=== PATIENT | female | born 2000 | race Caucasian/White ===

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

== ENCOUNTER 2018-04-04 20:17 | Emergency (ER) | payer MEDICAID ==
[~2018-04-04] VITALS: Ht 160 cm; Wt 79.5 kg
[2018-04-04 20:21] VITALS: Ht 160 cm; Wt 79.5 kg
[2018-04-04] MEDS ORDERED: OMNICEF300 MG PO (21:03)
[2018-04-04] MEDS ORDERED: PROMETHAZINE W473 ML PO (21:03)
[2018-04-04 22:31] VITALS: BP 123/62
== END 2018-04-04 22:31 | disposition home or self-care (01) ==
LOC: D.ER 20:17
DX: J40 Bronchitis, not specified as acute or chronic (principal); R09.89 Other specified symptoms and signs involving the circulatory and respiratory systems; R05 Cough; F17.200 Nicotine dependence, unspecified, uncomplicated

== ENCOUNTER 2019-06-12 18:31 | Observation (INO) | payer OTHER ==
[~2019-06-12] VITALS: Ht 160 cm; Wt 92.5 kg
[~2019-06-12 18:31] MED LIST changes: +OMNICEF300 MG PO; +PROMETHAZINE W473 ML PO
[2019-06-12 19:33] LABS: BASOPHILS 0.3 % (0-2); CALC OSMOLALITY 274 mosm/kg (275-300); CALCIUM 9.2 mg/dL (8.5-10.1); CARBON DIOXIDE 24.3 mmol/L (21.0-32.0); CHLORIDE - SERUM 105 mmol/L (98-107); CREATININE - SERUM 0.9 mg/dL (0.6-1.3); EOSINOPHILS 0.3 % (0-7); GLUCOSE 112 mg/dL (74-106); HCG SERUM POSITIVE (NEGATIVE); HEMATOCRIT 40.9 % (36.0-48.0); HEMOGLOBIN 13.8 g/dL (12-16); IMMATURE GRANULOCYTES 0.2 % (0-5); LYMPHOCYTES 31.8 % (15-50); MCH 29.9 pg (26.0-34.0); MCHC 33.7 g/dL (31.0-37.0); MCV 88.7 fL (80.0-100.0); MEAN PLATELET VOLUME 11.2 fL (7.4-10.4); MONOCYTES 9.1 % (2-11); NEUTROPHILS 58.3 % (40-80); PLATELET COUNT 202 10x3/uL (130-400); POTASSIUM - SERUM 3.6 mmol/L (3.5-5.1); RBC 4.61 10x6/uL (4.00-5.40); RDW 12.5 % (11.5-14.5); SODIUM 138 mmol/L (136-145); UREA NITROGEN 8 mg/dL (7-18); WBC 9.7 10x3/uL (4.8-10.8); eGFR NON AFRICAN AMERICAN 85 mL/min (90-120)
--- NOTE | 2019-06-12 19:50 | NUR ---
URINE SAMPLE OBTAINED BY PATIENT AND SENT TO LAB. PT AMBULATED TO RESTROOM INDEPENDENTLY WITHOUT DIFFICULTY.
--- NOTE | 2019-06-12 19:52 | NUR ---
PROVIDED PT WITH 2 CUPS OF WATER TO FILL BLADDER PER [facility].
--- NOTE | 2019-06-12 19:55 | NUR ---
PROVIDED PT WITH ADDITIONAL BLANKET
--- NOTE | 2019-06-12 20:05 | NUR ---
PT REPORTS BLADDER IS FULL AT THIS TIME. CONTACTED JOSSELIN FROM [facility] TO COME GET PATIENT FOR [facility].
--- NOTE | 2019-06-12 20:09 | NUR ---
PT WHEELED TO [facility] IN W/C BY [facility] TECH
--- NOTE | 2019-06-12 20:10 | NUR ---
ADVISED PT OF NPO STATUS
[2019-06-12 20:11] LABS: ALBUMIN 4.1 g/dL (3.4-5.0); ALKALINE PHOSPHATASE 71 U/L (30-120); ALT (SGPT) 38 U/L (10-68); BILIRUBIN - TOTAL 0.36 mg/dL (0.2-1.3); HCG - QUANTITATIVE (MATERNAL) 1393 mIU/mL; PROTEIN - SERUM 7.9 g/dL (6.4-8.2)
[2019-06-12 20:16] LABS: BILIRUBIN NEGATIVE (NEGATIVE); GLUCOSE NEGATIVE (NEGATIVE); KETONE NEGATIVE (NEGATIVE); NITRITE NEGATIVE (NEGATIVE); SPECIFIC GRAVITY 1.025 (1.005-1.020); UROBILINOGEN NORMAL (NORMAL)
[2019-06-12 20:17] LABS: BACTERIA FEW /hpf (NEGATIVE); EPITHELIAL CELLS OCC /hpf (0-5); RED CELLS - URINE 0-5 /hpf (0-5); WHITE CELLS - URINE 0-5 /hpf (NEGATIVE)
--- NOTE | 2019-06-12 20:35 | NUR ---
PT IN [facility] VERY UPSET AT THIS TIME. MOTHER BROUGHT WITH RN TO PATIENT. ADVISED EDP PT IS UPSET AT THIS TIME AND NEW ORDERS GIVEN.
--- NOTE | 2019-06-12 20:50 | NUR ---
COLLECTED PAD FROM PATIENT. PRODUCT OF CONCEPTION VISIBLE ON PAD WITH BRIGHT RED BLOOD. ADVISED CALLY ROBINS, AND CALLY PLASENCIA.
[2019-06-12 21:25] VITALS: BP 123/60
--- NOTE | 2019-06-12 21:29 | NUR ---
PRODUCTS OF CONCEPTION TAKEN TO LAB.
--- NOTE | 2019-06-12 22:02 | NUR ---
PT PROVIDED WITH CLEAN BRIEF AND ABSORBANT PAD ON BED. NO DISTRESS NOTED AT THIS TIME. COLOR WNL FOR RACE. RESPIRATIONS ARE EVEN AND UNLABORED. VSS. PT PASSED 2 LARGE CLOTS VISIBLE IN BRIEF.
--- NOTE | 2019-06-12 23:00 | NUR ---
patient arrived on unit and had passed large clot approx size of 7-8 chicken livers, vaginal bleeding a constant trickle, silvana care done, gown on and to bed, mother at bedside.
[2019-06-12 23:42] VITALS: BP 108/57
--- NOTE | 2019-06-13 00:01 | NUR ---
RESTING WITH EYES CLOSED, CALL LIGHT IN REACH, SR UP X2 PAD SATURATED AND CHANGED
--- NOTE | 2019-06-13 00:59 | NUR ---
SLEEPING, SR UP X 2 CALL LIGHT IN REACH AND MOTHER IS AT BEDSIDE, VAGINAL BLEEDING CHECK, 1/2 PAD SATURATED
--- NOTE | 2019-06-13 01:46 | NUR ---
PAD CHANGE, 1 PAD SATURATED SLEEPING, NO DISTRESS, MOTHER AT BEDSIDE
--- NOTE | 2019-06-13 03:06 | NUR ---
RESTING WITH EYES CLOSED, CALL LIGHT IN REACH, MOTHER AT BEDSIDE
[2019-06-13 04:05] VITALS: BP 98/47
--- NOTE | 2019-06-13 04:13 | NUR ---
PADS CHANGED 1/2 PAD SATURATED, BLEEDING MUCH BETTER, IV PATENT, DENIES NEEDS
--- NOTE | 2019-06-13 04:30 | NUR ---
up to bathroom with assist, voided small vaginal bleeding noted
--- NOTE | 2019-06-13 04:45 | NUR ---
c/o cramping rating 7/10 Morphine 4 mg SIVP for pain,
--- NOTE | 2019-06-13 05:45 | NUR ---
sleeping at right tilt, SR up, call light in reach, family at bedside
[2019-06-13 05:59] LABS: BASOPHILS 0.1 % (0-2); EOSINOPHILS 0.4 % (0-7); IMMATURE GRANULOCYTES 0.1 % (0-5); LYMPHOCYTES 27.7 % (15-50); MCH 29.7 pg (26.0-34.0); MCHC 33.4 g/dL (31.0-37.0); MCV 88.8 fL (80.0-100.0); MEAN PLATELET VOLUME 10.4 fL (7.4-10.4); MONOCYTES 7.6 % (2-11); NEUTROPHILS 64.1 % (40-80); PLATELET COUNT 177 10x3/uL (130-400); RDW 12.7 % (11.5-14.5); WBC 9.3 10x3/uL (4.8-10.8)
[2019-06-13 06:00] LABS: HEMATOCRIT 30.8 % (36.0-48.0); HEMOGLOBIN 10.3 g/dL (12-16); RBC 3.47 10x6/uL (4.00-5.40)
[2019-06-13 06:32] VITALS: BP 108/57; Ht 160 cm; Wt 92.5 kg
--- NOTE | 2019-06-13 06:45 | NUR ---
SLEEPING, BLEEDING HAS SLOWED CONSIDERABLY FROM ARRIVAL TO UNIT LAST EVENING. VAGINAL BLEEDING IS LIKE A NORMAL MENSTRAL CYCLE THIS MORNING, VOIDING WELL, IV PATENT INFUSING LR AT 125/HR IN LEFT HAND
--- NOTE | 2019-06-13 07:20 | NUR ---
DR EM VISITS WITH PT. SPECULUM EXAM PERFORMED WITH PRODUCTS OF CONCEPTION REMOVED PER DR EM. PT OOB AND AMB TO BR TO VOID. PERICARE DONE PER PT. PAD CHANGED WITH SMALL AMT OF BLOODY DISCHARGE NOTED. GOWN CHANGED. PT AMB BACK TO BED. VYON ACTIVITY WELL. WARM BLANKET PROVIDED AT PT REQUEST. VSS. HRRR WITHOUT AUDIBLE MURMUR. BBS CLEAR. BS X 4. ABDOMEN PALPATES SOFT/NON-DISTENDED/NON-TENDER. NEG HOMANS' SIGN. PPP. NO EDEMA NOTED TO BLE. PIV SITE CLEAR. PT REQUESTS AND RECEIVES DR ZAMBRANO AT THIS TIME. SR UPX 2. CALL LIGHT IN REACH. PT FAMILY MEMBER IN ROOM WITH PT.
[2019-06-13 07:24] VITALS: BP 125/56
--- NOTE | 2019-06-13 08:00 | NUR ---
PT SITTING UP IN BED. CONSUMING BREAKFAST. PROVIDED DR ZAMBRANO AT PT REQUEST. DENIES NEEDS OR C/O.
--- NOTE | 2019-06-13 08:30 | NUR ---
PERIPAD CHECKED WITH SCANT RUBRA LOCHIA NOTED. NO CLOTS NOTED.
--- NOTE | 2019-06-13 09:47 | NUR ---
PT LYING SUPINE IN BED. WAKES UPON ENTERING ROOM. PERIPAD WITH SCANT RUBRA LOCHIA NOTED. NO CLOTS NOTED. PT DENIES C/O OR NEEDS.
--- NOTE | 2019-06-13 10:35 | NUR ---
PT PRESCHOOL TEACHER'S ASSISTANT LIGHT. STATES "THE NURSE LAST NIGHT SAID THAT I COULD SEE MY BABY ANYTIME I WANTED TO". PATHOLOGY NOTIFIED. STATES WILL CHECK TO SEE IF FORMULIN ON SPECIMEN AND CALL BACK.
--- NOTE | 2019-06-13 10:40 | NUR ---
PATHOLOGY STAFF CALLS. STATES SPECIMEN AVAILABLE FOR PT TO VIEW. THIS NURSE TO PATHOLOGY DEPT AND RECEIVES SPECIMEN. SPECIMEN TO PT AT PT REQUEST. PT TEARFUL. OFFERED SUPPORT. PT MOTHER AT BEDSIDE FOR SUPPORT.
--- NOTE | 2019-06-13 10:55 | NUR ---
PT CALLS ON LIGHT. STATES "CAN YOU TAKE IT". SPECIMEN RETURNED TO PATHOLOGY DEPT.
[2019-06-13 11:41] VITALS: BP 99/51
--- NOTE | 2019-06-13 11:50 | NUR ---
PT IN BATHROOM. VOIDS FREELY WITHOUT DIFFICULTY. PERIPAD CHANGED WITH SMALL AMT OF RUBRA LOCHIA NOTED. PT YVON WELL.
--- NOTE | 2019-06-13 12:20 | NUR ---
PT SITTING UP IN BED. VISITS WITH MOTHER. DENIES C/O. ASKS WHEN LUNCH WILL BE SERVED. INFORMED THAT TRAYS ARE RUNNING BEHIND TODAY.
[2019-06-13 14:07] LABS: BASOPHILS 0.3 % (0-2); EOSINOPHILS 0.9 % (0-7); HEMATOCRIT 27.2 % (36.0-48.0); HEMOGLOBIN 9.1 g/dL (12-16); LYMPHOCYTES 40.5 % (15-50); MCHC 33.5 g/dL (31.0-37.0); MCV 89.8 fL (80.0-100.0); MEAN PLATELET VOLUME 11.3 fL (7.4-10.4); MONOCYTES 7.9 % (2-11); NEUTROPHILS 50.4 % (40-80); PLATELET COUNT 164 10x3/uL (130-400); RBC 3.03 10x6/uL (4.00-5.40); RDW 12.7 % (11.5-14.5)
[2019-06-13 14:08] LABS: WBC 6.5 10x3/uL (4.8-10.8)
--- NOTE | 2019-06-13 14:13 | NUR ---
PT LYING TO LEFT SIDE IN BED. ON PHONE. TEMP NOTED. ATTEMPT TO CALL DR EM WITH CBC RESULTS.
--- NOTE | 2019-06-13 14:20 | NUR ---
DR EM NOTIFIED OF CBC RESULTS. ORDERS RECEIVED.
--- NOTE | 2019-06-13 14:30 | NUR ---
PT REQUESTING SOMETHING FOR PAIN. DR EM NOTIFIED OF PT REQUEST. ORDER RECEIVED.
--- NOTE | 2019-06-13 14:40 | NUR ---
PT OUT OF SHOWER AT THIS TIME. STATES FEELS SOME BETTER. DENIES NEEDS. DR ZAMBRANO PROVIDED TO PT.
--- NOTE | 2019-06-13 14:43 | NUR ---
PT GIVEN MOTRIN 600 MG PO ORDERED FOR PT C/O CRAMPING OF "5-6" ON 0-10 PAIN SCALE. PT INSTRUCTED ON MED. VERBALIZES UNDERSTANDING.
--- NOTE | 2019-06-13 15:01 | NUR ---
RX FOR METHERGINE CALLED TO [facility], PHARMACIST.
--- NOTE | 2019-06-13 17:00 | NUR ---
PT SITTING UP ON SIDE OF BED. VISITS WITH FAMILY. REQUESTS AND RECEIVES DR ZAMBRANO. PT DENIES PASSING CLOTS OR SOAKING PAD IN ONE HOUR.
--- NOTE | 2019-06-13 17:05 | NUR ---
DR EM VISITS WITH PT. NO NEW ORDERS.
--- NOTE | 2019-06-13 18:15 | NUR ---
LAB STAFF HERE TO COLLECT ORDERED LABWORK.
[2019-06-13 18:39] LABS: BASOPHILS 0.4 % (0-2); EOSINOPHILS 1.3 % (0-7); HEMATOCRIT 26.9 % (36.0-48.0); IMMATURE GRANULOCYTES 0.1 % (0-5); MCHC 33.5 g/dL (31.0-37.0); MCV 89.7 fL (80.0-100.0); MEAN PLATELET VOLUME 11.1 fL (7.4-10.4); MONOCYTES 7.4 % (2-11); NEUTROPHILS 46.8 % (40-80); PLATELET COUNT 168 10x3/uL (130-400); RDW 12.6 % (11.5-14.5); WBC 7.1 10x3/uL (4.8-10.8)
--- NOTE | 2019-06-13 18:41 | NUR ---
PT SITTING UP IN BED. ON PHONE. DENIES C/O OR NEEDS.
--- NOTE | 2019-06-13 19:17 | NUR ---
Dr Alegria notified of CBC result, new orders noted. Dr Alegria will Call patient tomorrow with appointment for one week follow up
[2019-06-13] MEDS ORDERED: METHERGINE PO (19:45)
--- NOTE | 2019-06-14 09:58 | MORECARE ---
CASE MANAGEMENT DISCHARGE SUMMARY PATIENT: MAHSA NIEVES UNIT: [id number] ADM DATE: 06/12/19 AGE: 18 : 98 SEX: F ROOM/BED: D.[facility] AUTHOR: RODOLFO FRANCISCO PHYSICIAN: REFERRING PHYSICIAN: JEANA EM DO DATE OF SERVICE: 06/14/19 Discharge Plan Patient Name: MAHSA NIEVES Facility: [facility]:[place] : 2000 Planned Disposition: Home Anticipated Discharge Date: 06/13/19 Discharge Date: 06/13/2019 Expected LOS: 1 Initial Reviewer: [email or web address] Initial Review Date: 06/12/2019 Generated: 06/14/19 10:57 am Patient Name: MAHSA NIEVES Page [id number] at 0958 All edits/amendments must be made on the electronic document DICTATION DATE: 06/14/1957 MERCHANDISE EXECUTION LEADER: NICOLE 06/14/19 0957 RPT#: [id number] DC DATE:06/13/19 STATUS: DIS IN [facility] [address] [place] [address] END OF REPORT
--- NOTE | 2019-06-14 10:21 | MORECARE ---
CASE MANAGEMENT DISCHARGE SUMMARY PATIENT: MAHSA NIEVES UNIT: [id number] ADM DATE: 06/12/19 AGE: 18 : [birth year] SEX: F ROOM/BED: D.[facility] AUTHOR: RODOLFO FRANCISCO PHYSICIAN: REFERRING PHYSICIAN: JEANA EM DO DATE OF SERVICE: 06/14/19 Discharge Plan Patient Name: MAHSA NIEVES Facility: [facility]:[place] : 2000 Planned Disposition: Home Anticipated Discharge Date: 06/13/19 Discharge Date: 06/13/2019 Expected LOS: 1 Initial Reviewer: [email or web address] Initial Review Date: 06/12/2019 Generated: 06/14/19 11:20 am Last DP export: 06/14/19 8:58 a Patient Name: MAHSA NIEVES Page [phone] at 1021 All edits/amendments must be made on the electronic document DICTATION DATE: 06/14/19 1020 INSULATION MACHINE OPERATOR: NICOLE 06/14/19 1020 RPT#: [id number] DC DATE:06/13/19 STATUS: DIS IN [facility] [address] [place] [address] END OF REPORT
== END 2019-06-13 20:00 | disposition home or self-care (01) ==
LOC: D.ER 18:31 → OBSVTIME 22:23 → D.LD 22:23
PROVIDERS: Emergency Medicine; Family Medicine; ADMIT Student in an Organized Health Care Education/Training Program; ATTEND Student in an Organized Health Care Education/Training Program
DX: O03.9 Complete or unspecified spontaneous abortion without complication (principal); Z3A.10 10 weeks gestation of pregnancy; E70.1 Other hyperphenylalaninemias